=== PATIENT | female | born 1950 | race Caucasian/White ===

== ENCOUNTER 2016-12-20 07:52 | Day surgery (SDC) | payer BC ==
[~2016-12-20 07:52] MED LIST: PROPOFOL 500 MG/50 ML EMU IV ONE
[2016-12-20 10:12] VITALS: TEMP 97.2
[2016-12-20 10:34] VITALS: RESP 18
[2016-12-20 10:49] VITALS: BP 131/83; PULSE 70; O2SAT 98
== END 2016-12-20 10:58 | disposition home or self-care (01) ==
LOC: SURG 07:52
PROVIDERS: ATTEND Internal Medicine Gastroenterology
DX: R10.9 Unspecified abdominal pain (principal); K92.1 Melena; Q39.8 Other congenital malformations of esophagus; K44.9 Diaphragmatic hernia without obstruction or gangrene; Z83.71 Family history of colonic polyps; K57.30 Diverticulosis of large intestine without perforation or abscess without bleeding; K64.8 Other hemorrhoids; K31.9 Disease of stomach and duodenum, unspecified; K21.9 Gastro-esophageal reflux disease without esophagitis
CPT/HCPCS: 43239; 45378; 99001; J2001; J2704

== ENCOUNTER 2017-06-01 22:25 | Emergency (ER) | payer BC ==
[2017-06-01 22:43] VITALS: TEMP 98
[2017-06-01 23:22] LABS: BASOPHILS % (AUTO) 2 % (0-3); EOSINOPHILS % (AUTO) 9 % (0-9); HEMATOCRIT 40 % (35-47); MEAN CORPUSCULAR HGB CONC 38.7 gm/dl (32.0-36.0); MONOCYTES % (AUTO) 10.7 % (0-12); NEUTROPHILS % (AUTO) 57.1 % (37-80)
[2017-06-01 23:24] LABS: MEAN CORPUSCULAR VOLUME 78 fL (81-99)
[2017-06-01 23:27] LABS: CALCIUM 9.1 mg/dl (8.5-10.1); GLOM FILT RATE 51 mL/min (>60); MAGNESIUM 1.8 mg/dl (1.8-2.4); POTASSIUM 3.7 mMol/L (3.5-5.1); SODIUM 140 mMol/L (136-145)
[2017-06-01 23:32] LABS: HEMOGLOBIN A1C 4.7 % (4.8-6.0)
[2017-06-01 23:39] LABS: ANISOCYTOSIS SLIGHT AMT; TARGET CELLS PRESENT
[2017-06-02 03:11] VITALS: BP 138/79; PULSE 87; RESP 12; O2SAT 93
== END 2017-06-02 00:24 | disposition home or self-care (01) ==
LOC: ED 22:25
DX: R06.00 Dyspnea, unspecified (principal); I10 Essential (primary) hypertension; R06.2 Wheezing; E03.9 Hypothyroidism, unspecified; R73.9 Hyperglycemia, unspecified
CPT/HCPCS: 36415; 80048; 83036; 83735; 83880; 84443; 84484; 85025; 93005; 93306; 99284